=== PATIENT | male | born 1955 | race Caucasian/White ===

== ENCOUNTER 2016-12-15 19:35 | Emergency (ER) | payer MEDICARE ==
--- NOTE | 2016-12-15 19:50 | ERNOTE ---
Medical Problem HPI - General Time Seen by Provider: 12/15/16 19:38 Source: patient Exam Limitations: no limitations - Immun/Allergies/Home Medications Immunizations: IMMUNIZATION HX Immunizations Up to Date Yes History of Influenza Vaccine Yes Hx Pneumococcal Vaccination Yes Allergies/Adverse Reactions: Allergies codeine Allergy (Unknown, Verified 12/24/15 08:01) Hives Nasuea and vomiting as well Home Medications: HOME MEDICATIONS Acetaminophen [Tylenol] 650 mg PO Q4H PRN 12/15/16 [Last Taken Unknown] Amlodipine Besylate 5 mg PO DAILY 12/15/16 [Last Taken Unknown] Ascorbic Acid [Vitamin C] 500 mg PO DAILY 12/15/16 [Last Taken Unknown] Aspirin 325 mg PO DAILY 12/15/16 [Last Taken Unknown] Atorvastatin Calcium [Lipitor] 20 mg PO DAILY 12/15/16 [Last Taken Unknown] Atorvastatin Calcium [Lipitor] 20 mg PO DAILY 12/15/16 [Last Taken Unknown] Bacitracin Zinc [Bacitracin] 1 appl TP PRN PRN 12/15/16 [Last Taken Unknown] Calcium Carbonate [[id number]] 500 mg PO DAILY 12/15/16 [Last Taken Unknown] Carvedilol [Coreg] 12.5 mg PO BID 12/15/16 [Last Taken Unknown] Clonidine HCl 0.2 mg PO TID 12/15/16 [Last Taken Unknown] Clopidogrel Bisulfate [Plavix] 75 mg PO DAILY 12/15/16 [Last Taken Unknown] Ergocalciferol (Vitamin D2) [Vitamin D2] 800 unit PO DAILY 12/15/16 [Last Taken Unknown] Furosemide [Lasix] 40 mg PO DAILY 12/15/16 [Last Taken Unknown] Insulin Aspart [Novolog] 12 units SQ QAM 12/15/16 [Last Taken Unknown] Insulin Aspart [Novolog] 15 units SQ DAILY 12/15/16 [Last Taken Unknown] Insulin Aspart [Novolog] 19 units SQ QPM 12/15/16 [Last Taken Unknown] Insulin Glargine,Hum.rec.anlog [Lantus] 62 units SC 12/15/16 [Last Taken Unknown] Latanoprost [Xalatan] 1 drop LEFTEYE 12/15/16 [Last Taken Unknown] Levothyroxine Sodium [Synthroid] 50 mcg PO DAILY 12/15/16 [Last Taken Unknown] Lisinopril [Zestril] 40 mg PO DAILY 12/15/16 [Last Taken Unknown] Mirtazapine [Remeron] 15 mg PO HS 12/15/16 [Last Taken Unknown] Mycophenolate Mofetil [Cellcept] 1,000 mg PO BID 12/15/16 [Last Taken Unknown] Omeprazole 10 mg PO DAILY 12/15/16 [Last Taken Unknown] Omeprazole 40 mg PO DAILY 12/15/16 [Last Taken Unknown] Polyethylene Glycol 3350 [Miralax] 17 gm PO DAILY PRN 12/15/16 [Last Taken Unknown] Tacrolimus Anhydrous [Prograf (Tacrolimus)] 1.5 mg PO BID 12/15/16 [Last Taken Unknown] Tamsulosin HCl [Flomax] 0.4 mg PO DAILY 12/15/16 [Last Taken Unknown] Venlafaxine HCl [Effexor Xr] 150 mg PO DAILY 12/15/16 [Last Taken Unknown] predniSONE [Prednisone] 5 mg PO 3XW 12/15/16 [Last Taken Unknown] valACYclovir HCL [Valtrex] 500 mg PO DAILY 12/15/16 [Last Taken Unknown] - History of Present History Narrative: Patient was eating steak when he felt something get stuck in his lower throat, he has not been able to swallow anything since including his saliva. He has had food get stuck before but only briefly and never had to bee seen for that before , has history of GERD, was scoped years ago. Date (Duration): 12/15/16 Time (Timing): 19:00 Review of Systems - Review of Systems Constitutional: Absent: recent illness, fever ENT: Absent: nose congestion Respiratory: Present: See HPI, shortness of breath. Absent: cough Cardiology: Present: See HPI Gastrointestinal/Abdominal: Present: nausea, vomiting. Absent: diarrhea, abdominal pain Genitourinary: Present: no symptoms reported Neurological: Absent: headache - Patient's Past Medical History Patient History - Medical: Diabetes Type 1 Patient History - Cardiac/Respiratory: Deep Vein Thrombosis, Hypertension, Hyperlipidemia, Myocardial Infarction Patient History - Cancer: No Hx of Cancer Patient History - Surgical Procedures: Amputation, Angioplasty, Cholecystectomy , Cardiac stent, Total Hip Replacement, Other Patient History - Other: Organ Transplant - Social History Living Situations: spouse Abuse History: No History of abuse Psych History: No pertinent hx Smoking Status: Never smoker Alcohol Use: none Drug Use: none - Immunizations Immunizations Up to Date: Yes Hx Pneumococcal Vaccination: Yes History of Influenza Vaccine: Yes Physical Exam - Physical Exam General Appearance: Present: wd/wn, alert, mild distress, anxious Head Exam: Present: normal inspection Ears, Nose, Throat: Present: normal pharynx Respiratory: Present: no respiratory distress, normal breath sounds, no accessory muscle use, lungs clear Cardiovascular/Chest: Present: regular rate, rhythm, no murmur Gastrointestinal/Abdominal: Present: nontender, nondistended, soft Neurological Exam: Present: alert, oriented, normal mood/affect Skin Exam: Present: normal color, warm/dry ED Progress - Vital Signs Patient's Vital Signs:: I have reviewed the patient's vital signs. Vital Signs: Vital Signs 12/15/16 19:36 Temperature 37.6 C H Pulse Rate 102 H Respiratory 22 H Rate Blood Pressure 177/84 O2 Sat by Pulse 94 Oximetry - Progress/Reassessment Progress Note-Subjective: 12/15/16 19:49 after drinking large amount of hot water, fullness feeling in chest resolved, no more vomiting 12/15/16 20:11 patient asymptomatic, ready to go home Departure - Departure Clinical Impression: Food impaction of esophagus Qualifiers: Encounter type: initial encounter Qualified Code(s): T18.128A - Food in esophagus causing other injury, initial encounter Disposition: Home self-care Condition: Good Instructions: Swallowed Foreign Body, Adult, [id number] Additional Instructions: call your doctor for follow up make sure to chew all food well especially meat and bread Referrals: Brennan Delgado MD [Staff Physician] -
[2016-12-15 22:32] VITALS: BP 123/66
== END 2016-12-15 20:15 | disposition home or self-care (01) ==
LOC: ER 19:35
DX: T18.128A Food in esophagus causing other injury, initial encounter (principal); E10.9 Type 1 diabetes mellitus without complications; I10 Essential (primary) hypertension; E78.5 Hyperlipidemia, unspecified; I25.2 Old myocardial infarction; Z86.718 Personal history of other venous thrombosis and embolism; Z79.01 Long term (current) use of anticoagulants